=== PATIENT | female | born 1990 | race Caucasian/White ===

== ENCOUNTER 2025-06-03 23:36 | Emergency (ER) | payer SELFPAY ==
[~2025-06-03] VITALS: Ht 162.6 cm; Wt 100.0 kg
[2025-06-03 23:41] VITALS: BP 123/70; PULSE 114; RESP 16; TEMP 36.9; O2SAT 100
== END 2025-06-04 01:00 | disposition left against medical advice (07) ==
LOC: ER 23:53
DX: F41.9 Anxiety disorder, unspecified (principal)
CPT/HCPCS: 99281; 99283